=== PATIENT | female | born 2000 | race Caucasian/White ===

== ENCOUNTER 2022-01-12 17:08 | Inpatient (IN) | payer BC ==
[2022-01-12 17:35] VITALS: BMI 16.5
[2022-01-12] MEDS ORDERED: FAMOTIDINE 20 MG/50 ML IVPB 20 MG/50 ML MG IVPB ONE ×2 (18:12→19:07)
[2022-01-12] MEDS ORDERED: ACETAMINOPHEN 1000 MG/100 ML BAG IVPB ONE (18:12)
[2022-01-12] MEDS ORDERED: MAG HYDROX/AL HYDROX/SIMETH 30 ML UNIT-DOSE CUP PO ONE (18:12)
[2022-01-12] MEDS ORDERED: MAG HYDROX/AL HYDROX/SIMETH 30 ML UNIT-DOSE CUP ONE (19:07)
[2022-01-12] MEDS ORDERED: ACETAMINOPHEN INJECTION 100 ML IVPB ONE (19:07)
[2022-01-12 19:16] LABS: HEMATOCRIT 35.6 % (32.4-45.2); HEMOGLOBIN 12.7 G/dL (10.7-15.3); MCH 32.5 pg (25.7-33.7); MCHC 35.8 g/dl (32.0-36.0); MEAN CELL VOLUME 90.8 fl (80-96); MEAN PLT VOLUME 7.9 fl (7.5-11.1); PLATELET COUNT 216.5 10^3/uL (134-434); RBC 3.92 10^6/uL (3.60-5.2); RDW 14.4 % (11.6-15.6); WHITE BLOOD COUNT 7.1 10^3/uL (4.0-10.8)
[2022-01-12 19:30] LABS: CALCIUM 9.3 mg/dl (8.5-10)
[2022-01-12 19:43] LABS: ALBUMIN 4.3 g/dl (3.4-5.0); BILIRUBIN,TOTAL 0.4 mg/dl (0.2-1); CREATININE 0.4 mg/dl (0.55-1.3); TOT PROT 6.7 g/dl (6.4-8.2)
[2022-01-13] MEDS ORDERED: ACETAMINOPHEN 1000 MG/100 ML BAG IVPB ONE (01:59)
[2022-01-13] MEDS ORDERED: ACETAMINOPHEN INJECTION 100 ML IVPB ONE (02:01)
[2022-01-13] MEDS ORDERED: SODIUM PHOSPHATE/NA BIPHOS 133 ML ENEMA PR ONE (02:54)
[2022-01-13] MEDS ORDERED: SODIUM PHOSPHATE/NA BIPHOS 133 ML ENEMA RC ONE (02:54)
[2022-01-13] MEDS: DEXTROSE 5%-NORMAL SALINE 1,000 ML IV SCH ×2 (03:02→08:56)
[2022-01-13] MEDS ORDERED: PANTOPRAZOLE SODIUM 40 MG VIAL IVPUSH SCH (10:00)
[2022-01-13] MEDS ORDERED: DOCUSATE SODIUM 100 MG CAPSULE (FP) PO SCH (10:00)
[2022-01-13 18:16] VITALS: BP 101/65; PULSE 66; RESP 18; TEMP 98
[2022-01-13] MEDS ORDERED: traZODone HCL 50 MG TABLET (FP) PO SCH (22:00)
== END 2022-01-13 18:39 | disposition left against medical advice (07) | DRG 389 ==
LOC: FER 17:08 → SUPCPDRO 17:08 → J7W 01-13 07:56 → FER 01-13 08:12 → J7W 01-13 08:15
PROVIDERS: ADMIT Internal Medicine; ATTEND Internal Medicine
DX: K56.1 Intussusception (principal); Z68.1 Body mass index [BMI] 19.9 or less, adult; R10.84 Generalized abdominal pain; F50.9 Eating disorder, unspecified; Z88.0 Allergy status to penicillin; Z53.29 Procedure and treatment not carried out because of patient's decision for other reasons; K59.00 Constipation, unspecified
CPT/HCPCS: 36415; 74019-TC-FY; 74177-TC; 80053; 81003; 83605; 83690; 84703; 85027; 87086; 93005; 99285-25; C9803-CS; G0378; Q9967; U0003; U0005